=== PATIENT | male | born 1985 | race Caucasian/White ===

== ENCOUNTER → 2020-06-15 | Emergency (ER) | payer BC ==
[~2020-06-15] VITALS: Ht 162.6 cm; Wt 72.6 kg
[~2020-06-15] MED LIST: CIPRO HC OTIC S10 ML OT; NAPROXEN375 MG PO
== END | disposition home or self-care (01) ==
LOC: ER 15:25
DX: H66.92 Otitis media, unspecified, left ear (principal); H61.22 Impacted cerumen, left ear; Z03.818 Encounter for observation for suspected exposure to other biological agents ruled out

== ENCOUNTER 2020-06-25 15:57 | Emergency (ER) | payer BC ==
[~2020-06-25] VITALS: Ht 162.6 cm; Wt 72.6 kg
[2020-06-25] MEDS ORDERED: CIPRO HC OTIC S10 ML OT (21:28)
[2020-06-25] MEDS ORDERED: NAPROXEN375 MG PO (21:28)
== END 2020-06-25 22:17 | disposition home or self-care (01) ==
LOC: ER 15:57
DX: H92.02 Otalgia, left ear (principal); J06.9 Acute upper respiratory infection, unspecified; Z03.818 Encounter for observation for suspected exposure to other biological agents ruled out

== ENCOUNTER → 2020-09-18 | Emergency (ER) | payer BC ==
[~2020-09-18] VITALS: Ht 162.6 cm; Wt 74.4 kg
[~2020-09-18] MED LIST changes: +NAPROXEN375 MG; +ZITHROMAX500 MG PO
== END | disposition home or self-care (01) ==
LOC: ER 21:33
DX: R59.0 Localized enlarged lymph nodes (principal); Z11.52 Encounter for screening for COVID-19

== ENCOUNTER 2023-01-17 04:11 | Emergency (ER) | payer BC ==
[~2023-01-17] VITALS: Ht 134.6 cm; Wt 72.6 kg
== END 2023-01-17 07:50 | disposition home or self-care (01) ==
LOC: ER 04:11
DX: K52.9 Noninfective gastroenteritis and colitis, unspecified (principal); Z88.8 Allergy status to other drugs, medicaments and biological substances